=== PATIENT | male | born 1960 | race African-American/Black ===

== ENCOUNTER 2022-01-19 04:54 | Inpatient (IN) | payer OTHER ==
[~2022-01-19] VITALS: Ht 182.9 cm; Wt 102.1 kg
[2022-01-19] MEDS ORDERED: KETOROLAC 15MG/ML VIAL IM ONE (07:30)
[2022-01-19 11:22] LABS: HEMATOCRIT. 46.2 % (42.0-52.0); HEMOGLOBIN. 15.5 g/dL (14.0-18.0); MEAN CORPUSCULAR HEMOGLOBIN 28.4 pg (28.0-32.0); MEAN CORPUSCULAR VOLUME 84.5 fL (80.0-94.0); MEAN PLATELET VOLUME 7.9 fl (7.4-10.4); PLATELET 162 x1000/uL (130-400); RED BLOOD CELL COUNT 5.47 mill/uL (4.7-6.1); RED CELL DISTRIBUTION WIDTH 13.5 % (11.6-14.6)
[2022-01-19 11:26] LABS: CHLORIDE 104 mEq/L (98-107)
[2022-01-19 11:34] LABS: INR 1.1; PROTHROMBIN TIME 11.5 sec (9.6-11.0)
[2022-01-19 11:44] LABS: PLATELET ESTIMATE NORMAL
[2022-01-19] MEDS ORDERED: PROPOFOL 200MG/20ML VIAL IV ONE (13:36)
[2022-01-19] MEDS ORDERED: MIDAZOLAM HCL 2 MG/2 ML VIAL ONE (13:38)
[2022-01-19] MEDS ORDERED: LIDOCAINE HCL 1% 50ML VIAL (10MG/ML) ONE (13:38)
[2022-01-19] MEDS ORDERED: SKIN ADHESIVE 0.7 GM EA TOP ONE (13:41)
[2022-01-19] MEDS ORDERED: BACITRACIN 15GM TUBE TOP ONE (13:41)
[2022-01-19] MEDS ORDERED: POLYMYXIN B SULFATE 500000 UNITS/VIAL ONE (13:41)
[2022-01-19] MEDS ORDERED: VANCOMYCIN HCL 1 GM/VIAL ONE (13:41)
[2022-01-19] MEDS ORDERED: BUPIVACAINE HCL/PF 0.5% (5MG/ML) 10ML ONE (13:42)
[2022-01-19] MEDS ORDERED: LIDOCAINE HCL 1% 10 MG/ML 10ML VIAL ONE (13:42)
[2022-01-19] MEDS ORDERED: FENTANYL CITRATE/PF 50MCG/ML 2ML VIAL ONE (14:24)
[2022-01-19] MEDS ORDERED: ONDANSETRON HCL 4MG/2ML INJ ONE (14:25)
[2022-01-19] MEDS ORDERED: DEXAMETHASONE 4MG/ML 1ML VIAL ONE (14:25)
[2022-01-19] MEDS ORDERED: CEFAZOLIN SODIUM 1000MG/VIAL ONE (14:25)
[2022-01-19] MEDS ORDERED: ONDANSETRON HCL 4MG/2ML INJ IV PRN (15:00)
[2022-01-19] MEDS ORDERED: LORAZEPAM 0.5MG TABLET PO PRN (15:00)
[2022-01-19] MEDS ORDERED: IPRATROPIUM/ALBUTEROL 0.5-3(2.5)MG/3ML NEB HHN PRN (15:00)
[2022-01-19] MEDS ORDERED: CLONIDINE 0.1MG TABLET PO PRN (15:00)
[2022-01-19] MEDS ORDERED: ACETAMINOPHEN 325MG TABLET PO PRN ×2 (15:00)
[2022-01-19] MEDS ORDERED: DOCUSATE SODIUM 100MG CAPSULE PO PRN (15:00)
[2022-01-19] MEDS ORDERED: HYDROMORPHONE HCL/PF 2MG/ML CPJ IV PRN (16:00)
[2022-01-19 17:15] VITALS: BP 145/85
[2022-01-19] MEDS: CEFAZOLIN 2,000 MG in DEXT 5% WATER 100 ML IV SCH (19:10)
[2022-01-20] MEDS: CEFAZOLIN 2,000 MG in DEXT 5% WATER 100 ML IV SCH ×4 (00:23→23:53)
[2022-01-20 06:43] LABS: CHLORIDE 104 mEq/L (98-107)
[2022-01-20 06:51] LABS: BASOPHILS % 0.2 % (0.0-2.0); EOSINOPHILS % 0.9 % (0.0-5.0); HEMATOCRIT. 40.2 % (42.0-52.0); HEMOGLOBIN. 13.6 g/dL (14.0-18.0); LYMPHOCYTES % 8.2 % (20.0-50.0); MEAN CORPUSCULAR HEMOGLOBIN 28.6 pg (28.0-32.0); MEAN CORPUSCULAR VOLUME 84.3 fL (80.0-94.0); MONOCYTES % 9.1 % (2.0-8.0); NEUTROPHILS % 81.6 % (40.0-76.0); PLATELET 161 x1000/uL (130-400); RED BLOOD CELL COUNT 4.77 mill/uL (4.7-6.1); RED CELL DISTRIBUTION WIDTH 13.4 % (11.6-14.6)
[2022-01-20 08:00] VITALS: BP 149/77
[2022-01-20] MEDS ORDERED: NALOXONE HCL 0.4MG/ML VIAL IV PRN (08:15)
[2022-01-20] MEDS: ENOXAPARIN 30MG/0.3ML SYR SUBCUT SCH ×2 (08:29→21:33)
[2022-01-20] MEDS ORDERED: ENOXAPARIN 30MG/0.3ML SYR SUBCUT ONE (09:00)
[2022-01-20 12:00] VITALS: BP 135/75
[2022-01-20 16:00] VITALS: BP 152/90
[2022-01-20] MEDS: HYDROCODONE/ACETAMINOPHEN 5/325MG TABLET PO PRN (18:20)
[2022-01-20 20:00] VITALS: BP 148/81
[2022-01-21] VITALS: BP 134/76
[2022-01-21 04:00] VITALS: BP 130/74
[2022-01-21 08:00] VITALS: BP 155/81
[2022-01-21] MEDS: HYDROCODONE/ACETAMINOPHEN 5/325MG TABLET PO PRN (08:40)
[2022-01-21] MEDS: ENOXAPARIN 30MG/0.3ML SYR SUBCUT SCH ×2 (08:41→21:18)
[2022-01-21] MEDS: CEFAZOLIN 2,000 MG in DEXT 5% WATER 100 ML IV SCH ×2 (09:39→16:29)
[2022-01-21 16:00] VITALS: BP 149/84
[2022-01-21 19:58] VITALS: BP 159/91
[2022-01-22] VITALS: BP 148/88
[2022-01-22] MEDS: CEFAZOLIN 2,000 MG in DEXT 5% WATER 100 ML IV SCH ×3 (00:22→16:38)
[2022-01-22 04:00] VITALS: BP 138/78
[2022-01-22 08:00] VITALS: BP 141/86
[2022-01-22] MEDS: ENOXAPARIN 30MG/0.3ML SYR SUBCUT SCH ×2 (08:47→20:57)
[2022-01-22] MEDS ORDERED: LOSA1TAB40 PO (11:52)
[2022-01-22] MEDS ORDERED: AMLO10TA80 PO (11:54)
[2022-01-22] MEDS ORDERED: DOXA2TAB2 MT (11:55)
[2022-01-22] MEDS ORDERED: LOV30 SUBCUT (11:58)
[2022-01-22] MEDS ORDERED: ACET-3163 MT (11:58)
[2022-01-22] MEDS ORDERED: HYDR-4001 MT (11:58)
[2022-01-22 12:00] VITALS: BP 164/93
[2022-01-22 16:00] VITALS: BP 150/80
[2022-01-22 20:00] VITALS: BP 146/87
[2022-01-22] MEDS: DOXAZOSIN MESYLATE 2MG TABLET PO SCH (20:56)
[2022-01-23] VITALS: BP 128/70
[2022-01-23] MEDS: CEFAZOLIN 2,000 MG in DEXT 5% WATER 100 ML IV SCH ×3 (00:28→15:40)
[2022-01-23 04:00] VITALS: BP 130/77
[2022-01-23 08:00] VITALS: BP 138/81
[2022-01-23] MEDS: AMLODIPINE 10MG TABLET PO SCH (09:00)
[2022-01-23] MEDS: ENOXAPARIN 30MG/0.3ML SYR SUBCUT SCH ×2 (09:00→20:17)
[2022-01-23] MEDS: LOSARTAN POTASSIUM 100 MG TABLET PO SCH (09:00)
[2022-01-23] MEDS: HYDROCHLOROTHIAZIDE 12.5MG CAPSULE PO SCH (09:01)
[2022-01-23] MEDS: HYDROCODONE/ACETAMINOPHEN 5/325MG TABLET PO PRN (11:59)
[2022-01-23 12:00] VITALS: BP 133/85
[2022-01-23 16:00] VITALS: BP 137/91
[2022-01-23 20:00] VITALS: BP 144/85
[2022-01-23] MEDS: DOXAZOSIN MESYLATE 2MG TABLET PO SCH (20:17)
[2022-01-24] MEDS: CEFAZOLIN 2,000 MG in DEXT 5% WATER 100 ML IV SCH ×3 (00:13→16:27)
[2022-01-24 08:00] VITALS: BP 154/91
[2022-01-24] MEDS: HYDROCHLOROTHIAZIDE 12.5MG CAPSULE PO SCH (09:00)
[2022-01-24] MEDS: LOSARTAN POTASSIUM 100 MG TABLET PO SCH (09:27)
[2022-01-24] MEDS: AMLODIPINE 10MG TABLET PO SCH (09:27)
[2022-01-24] MEDS: ENOXAPARIN 30MG/0.3ML SYR SUBCUT SCH (09:28)
[2022-01-24 12:00] VITALS: BP 131/81
[2022-01-24 16:00] VITALS: BP 137/77
[2022-01-24 17:11] VITALS: BP 137/77
== END 2022-01-24 17:55 | disposition home health service (06) | DRG 482 ==
LOC: ER 04:54 → 4WST 09:26 → ENRESERV 12:19
PROVIDERS: ADMIT Internal Medicine; ATTEND Internal Medicine
PROC: 0QS604Z Reposition Right Upper Femur with Internal Fixation Device, Open Approach (ICD-10-PCS; principal; 2022-01-19)
DX: S72.001A Fracture of unspecified part of neck of right femur, initial encounter for closed fracture (principal); W01.0XXA Fall on same level from slipping, tripping and stumbling without subsequent striking against object, initial encounter; I10 Essential (primary) hypertension; D64.9 Anemia, unspecified; R73.9 Hyperglycemia, unspecified; R53.81 Other malaise; M89.9 Disorder of bone, unspecified; Z20.822 Contact with and (suspected) exposure to COVID-19; R26.9 Unspecified abnormalities of gait and mobility; Z82.49 Family history of ischemic heart disease and other diseases of the circulatory system; Y93.89 Activity, other specified; Y92.89 Other specified places as the place of occurrence of the external cause; Y99.8 Other external cause status
CPT/HCPCS: 36415; 71045; 73502; 73552; 73560; 73590; 73600; 76000; 80048; 80053; 85025; 86850; 86900; 87426; 93005; 97110; 97116; 97162; 97166; 97530; 97535; 99285; A6261; C1713; C9803; J0690; J1100; J1170; J1650; J1885; J2250; J2405; J2704; J3010; J3370; J3490; J7060

== ENCOUNTER 2022-01-30 10:13 | Inpatient (IN) | payer OTHER ==
[~2022-01-30] VITALS: Ht 180.3 cm; Wt 100.7 kg
[~2022-01-30 10:13] MED LIST: ACET-3163 MT; AMLO10TA80 PO; DOXA2TAB2 MT; HYDR-4001 MT; LOSA1TAB40 PO; LOV30 SUBCUT
[2022-01-30 11:08] LABS: BASOPHILS % 0.3 % (0.0-2.0); EOSINOPHILS % 1.6 % (0.0-5.0); HEMATOCRIT. 38.4 % (42.0-52.0); HEMOGLOBIN. 12.8 g/dL (14.0-18.0); LYMPHOCYTES % 24.6 % (20.0-50.0); MEAN CORPUSCULAR HEMOGLOBIN 27.9 pg (28.0-32.0); MEAN CORPUSCULAR VOLUME 83.6 fL (80.0-94.0); MEAN PLATELET VOLUME 7.2 fl (7.4-10.4); MONOCYTES % 6.9 % (2.0-8.0); NEUTROPHILS % 66.6 % (40.0-76.0); PLATELET 264 x1000/uL (130-400); RED BLOOD CELL COUNT 4.59 mill/uL (4.7-6.1)
[2022-01-30 11:10] LABS: CHLORIDE 107 mEq/L (98-107)
[2022-01-30] MEDS ORDERED: ENOXAPARIN 80MG/0.8ML SYR SUBCUT ONE (13:15)
[2022-01-30] MEDS ORDERED: DOCUSATE SODIUM 100MG CAPSULE PO PRN (14:30)
[2022-01-30] MEDS ORDERED: KETOROLAC 15MG/ML VIAL IV PRN (14:30)
[2022-01-30] MEDS ORDERED: CLONIDINE 0.1MG TABLET PO PRN (14:30)
[2022-01-30] MEDS ORDERED: ACETAMINOPHEN 325MG TABLET PO PRN (14:30)
[2022-01-30] MEDS ORDERED: NITROGLYCERIN 0.4MG TABLET SL SL PRN (14:30)
[2022-01-30] MEDS ORDERED: GUAIFENESIN 200MG/10ML SUGAR FREE UDC PO PRN (14:30)
[2022-01-30] MEDS ORDERED: POTASSIUM CHLORIDE 20MEQ TABLET SR PO NR (14:30)
[2022-01-30] MEDS ORDERED: ONDANSETRON HCL 4MG/2ML INJ IV PRN (14:30)
[2022-01-30] MEDS ORDERED: MAGNESIUM/ALUMINUM HYDROXIDE/SIMETHICONE 30ML UDC PO PRN (14:30)
[2022-01-30] MEDS ORDERED: NA PHOS,M-B/NA PHOS,DI-BA ENEMA 118ML PR PRN (14:30)
[2022-01-30] MEDS ORDERED: IPRATROPIUM/ALBUTEROL 0.5-3(2.5)MG/3ML NEB NEB PRN (14:30)
[2022-01-30] MEDS ORDERED: ENOXAPARIN 40MG/0.4ML SYR SUBCUT SCH (15:00)
[2022-01-30 15:38] LABS: ETHANOL BLOOD < 10 mg/dL; HDL CHOLESTEROL 42 mg/dL (40-59); LDL CHOLESTEROL 126 mg/dL (5-100); TOTAL IRON BINDING CAPACITY 237 ug/dL (250-450)
[2022-01-30] MEDS ORDERED: IOHEXOL-350 100 ML BOTTLE ONE (15:49)
[2022-01-30 16:26] LABS: VITAMIN B12 SERUM 645 pg/mL (211-911)
[2022-01-30 18:44] VITALS: BP 148/89
[2022-01-30] MEDS: ENOXAPARIN 100MG/ML SYR SUBCUT SCH (18:48)
[2022-01-30 20:00] VITALS: BP 133/88
[2022-01-30] MEDS ORDERED: ZOLPIDEM TARTRATE 5MG TABLET PO PRN (21:00)
[2022-01-30] MEDS: FAMOTIDINE 20MG TABLET PO SCH (23:14)
[2022-01-30] MEDS: METOPROLOL TARTRATE 25MG TABLET PO SCH (23:15)
[2022-01-31] VITALS: BP 130/92
[2022-01-31 03:46] LABS: CREATINE KINASE MB FRACTION 1.4 ng/mL (0.5-3.6)
[2022-01-31 04:00] VITALS: BP 128/87
[2022-01-31] MEDS ORDERED: ENOXAPARIN 30MG/0.3ML SYR SUBCUT SCH (06:00)
[2022-01-31] MEDS: ENOXAPARIN 100MG/ML SYR SUBCUT SCH ×2 (06:49→17:58)
[2022-01-31 08:00] VITALS: BP 124/87
[2022-01-31] MEDS: FAMOTIDINE 20MG TABLET PO SCH ×2 (08:46→21:29)
[2022-01-31] MEDS: METOPROLOL TARTRATE 25MG TABLET PO SCH ×2 (08:46→21:00)
[2022-01-31] MEDS ORDERED: ASPIRIN 325MG EC TABLET PO SCH (09:00)
[2022-01-31 12:00] VITALS: BP 131/94
[2022-01-31 13:26] LABS: BASOPHILS % 0.3 % (0.0-2.0); EOSINOPHILS % 2.4 % (0.0-5.0); HEMATOCRIT. 40.3 % (42.0-52.0); HEMOGLOBIN. 13.6 g/dL (14.0-18.0); LYMPHOCYTES % 23.9 % (20.0-50.0); MEAN CORPUSCULAR HEMOGLOBIN 28.2 pg (28.0-32.0); MEAN CORPUSCULAR VOLUME 83.7 fL (80.0-94.0); MEAN PLATELET VOLUME 6.9 fl (7.4-10.4); MONOCYTES % 8.5 % (2.0-8.0); NEUTROPHILS % 64.9 % (40.0-76.0); PLATELET 218 x1000/uL (130-400); RED BLOOD CELL COUNT 4.82 mill/uL (4.7-6.1)
[2022-01-31 13:34] LABS: INR 1.1; PROTHROMBIN TIME 11.8 sec (9.6-11.0)
[2022-01-31 14:14] LABS: CREATINE KINASE 106 IU/L (39-308); CREATINE KINASE MB FRACTION < 1.0 ng/mL (0.5-3.6); PHOSPHORUS 3.2 mg/dL (2.5-4.9)
[2022-01-31 16:00] VITALS: BP 124/84
[2022-01-31 16:55] LABS: *AMPHETAMINES SCREEN URINE NEGATIVE (NEGATIVE); *BARBITURATES SCREEN URINE NEGATIVE (NEGATIVE); *BENZODIAZEPINES SCREEN URINE NEGATIVE (NEGATIVE); *COCAINE SCREEN URINE NEGATIVE (NEGATIVE); CANNABINOID URINE SCREEN NEGATIVE (NEGATIVE); METHADONE URINE SCREEN NEGATIVE (NEGATIVE); OPIATES URINE SCREEN NEGATIVE (NEGATIVE); PHENCYCLIDINE URINE SCREEN NEGATIVE (NEGATIVE)
[2022-01-31 20:00] VITALS: BP 136/85
[2022-02-01] VITALS (7 sets, daily range): BP systolic 131–162; BP diastolic 85–104
[2022-02-01] MEDS: ENOXAPARIN 100MG/ML SYR SUBCUT SCH (05:42)
[2022-02-01] MEDS: METOPROLOL TARTRATE 25MG TABLET PO SCH ×2 (09:00→21:25)
[2022-02-01] MEDS: FAMOTIDINE 20MG TABLET PO SCH ×2 (09:00→21:25)
[2022-02-01] MEDS ORDERED: IODIXANOL 320MG/ML 100 ML BOTTLE IV ONE (09:13)
[2022-02-01] MEDS ORDERED: LIDOCAINE HCL/PF 1% 10 MG/ML 5ML VIAL ONE (09:13)
[2022-02-01] MEDS ORDERED: HEPARIN 1000 UNITS/ML 10ML ONE ×2 (09:13→10:57)
[2022-02-01] MEDS ORDERED: FENTANYL CITRATE/PF 50MCG/ML 2ML VIAL ONE (09:57)
[2022-02-01] MEDS ORDERED: MIDAZOLAM HCL 2 MG/2 ML VIAL ONE ×2 (09:57→10:41)
[2022-02-01] MEDS ORDERED: DIPHENHYDRAMINE 50MG/ML VIAL ONE (10:09)
[2022-02-01] MEDS ORDERED: ATROPINE SULFATE 1MG/10ML SYR IV PRN (12:45)
[2022-02-01] MEDS ORDERED: SODIUM CHLORIDE 0.45% 250 ML IV SCH (13:00)
[2022-02-01] MEDS: KETOROLAC 15MG/ML VIAL IV PRN (13:44)
[2022-02-01] MEDS ORDERED: APIXABAN 5 MG TABLET PO SCH ×2 (17:00)
[2022-02-01] MEDS ORDERED: NALOXONE HCL 0.4MG/ML VIAL IV PRN (17:30)
[2022-02-01] MEDS: MORPHINE SULFATE 2 MG/ML CPJ (NOT FOR IM USE) IV PRN (18:15)
[2022-02-01 21:54] LABS: BASOPHILS % 0.2 % (0.0-2.0); EOSINOPHILS % 1.7 % (0.0-5.0); HEMATOCRIT. 35.9 % (42.0-52.0); HEMOGLOBIN. 12.3 g/dL (14.0-18.0); LYMPHOCYTES % 14.6 % (20.0-50.0); MEAN CORPUSCULAR HEMOGLOBIN 28.3 pg (28.0-32.0); MEAN CORPUSCULAR VOLUME 82.5 fL (80.0-94.0); MEAN PLATELET VOLUME 7.4 fl (7.4-10.4); MONOCYTES % 7.6 % (2.0-8.0); NEUTROPHILS % 75.9 % (40.0-76.0); PLATELET 242 x1000/uL (130-400); RED BLOOD CELL COUNT 4.35 mill/uL (4.7-6.1); RED CELL DISTRIBUTION WIDTH 12.6 % (11.6-14.6)
[2022-02-01] MEDS ORDERED: IOHEXOL-300 100 ML BOTTLE ONE (23:25)
[2022-02-02] VITALS (10 sets, daily range): BP systolic 135–172; BP diastolic 81–109
[2022-02-02] MEDS: MORPHINE SULFATE 2 MG/ML CPJ (NOT FOR IM USE) IV PRN (00:17)
[2022-02-02 06:48] LABS: BASOPHILS % 0.2 % (0.0-2.0); EOSINOPHILS % 2.6 % (0.0-5.0); HEMATOCRIT. 34.2 % (42.0-52.0); HEMOGLOBIN. 11.8 g/dL (14.0-18.0); LYMPHOCYTES % 16.5 % (20.0-50.0); MEAN CORPUSCULAR HEMOGLOBIN 28.4 pg (28.0-32.0); MEAN PLATELET VOLUME 7.5 fl (7.4-10.4); MONOCYTES % 9.2 % (2.0-8.0); NEUTROPHILS % 71.5 % (40.0-76.0); PLATELET 235 x1000/uL (130-400); RED BLOOD CELL COUNT 4.17 mill/uL (4.7-6.1); RED CELL DISTRIBUTION WIDTH 12.3 % (11.6-14.6)
[2022-02-02 06:54] LABS: CHLORIDE 105 mEq/L (98-107)
[2022-02-02] MEDS: FAMOTIDINE 20MG TABLET PO SCH ×2 (08:33→20:01)
[2022-02-02] MEDS: METOPROLOL TARTRATE 25MG TABLET PO SCH ×2 (08:35→20:01)
[2022-02-02] MEDS: KETOROLAC 15MG/ML VIAL IV PRN (08:36)
[2022-02-03] VITALS (11 sets, daily range): BP systolic 130–154; BP diastolic 58–95
[2022-02-03] MEDS: METOPROLOL TARTRATE 25MG TABLET PO SCH ×2 (08:49→20:15)
[2022-02-03] MEDS: FAMOTIDINE 20MG TABLET PO SCH ×2 (08:49→20:14)
[2022-02-03] MEDS: APIXABAN 5 MG TABLET PO SCH ×2 (11:43→17:30)
[2022-02-04] VITALS (14 sets, daily range): BP systolic 120–143; BP diastolic 75–100
[2022-02-04] MEDS: FAMOTIDINE 20MG TABLET PO SCH ×2 (08:11→20:34)
[2022-02-04] MEDS: APIXABAN 5 MG TABLET PO SCH ×2 (08:11→17:05)
[2022-02-04] MEDS: METOPROLOL TARTRATE 25MG TABLET PO SCH (08:11)
[2022-02-05] VITALS (10 sets, daily range): BP systolic 129–144; BP diastolic 78–92
[2022-02-05] MEDS: ACETAMINOPHEN 325MG TABLET PO PRN ×3 (01:19→17:45)
[2022-02-05] MEDS: APIXABAN 5 MG TABLET PO SCH ×2 (08:22→17:44)
[2022-02-05] MEDS: FAMOTIDINE 20MG TABLET PO SCH ×2 (08:22→21:42)
[2022-02-06] VITALS (8 sets, daily range): BP systolic 141–146; BP diastolic 62–93
[2022-02-06] MEDS ORDERED: LIDOCAINE 5% PATCH TOP SCH (09:00)
[2022-02-06] MEDS: FAMOTIDINE 20MG TABLET PO SCH (09:38)
[2022-02-06] MEDS: APIXABAN 5 MG TABLET PO SCH (09:39)
[2022-02-06] MEDS ORDERED: APIX5TAB PO (11:25)
[2022-02-06] MEDS ORDERED: FAMO20TA8 PO (11:25)
[2022-02-10] MEDS ORDERED: APIXABAN 5 MG TABLET PO SCH ×2 (09:00)
== END 2022-02-06 13:35 | disposition home health service (06) | DRG 163 ==
LOC: ER 10:13 → EDBEDREQ 13:19 → EDBEDREQTM 13:19 → ENRESERV 16:07 → 7EST 17:43 → 3WST 02-01 12:35
PROVIDERS: ADMIT Internal Medicine; ATTEND Internal Medicine
PROC: 4A023N6 Measurement of Cardiac Sampling and Pressure, Right Heart, Percutaneous Approach (ICD-10-PCS; principal; 2022-02-01)
PROC: 02CP3ZZ Extirpation of Matter from Pulmonary Trunk, Percutaneous Approach (ICD-10-PCS; 2022-02-01)
PROC: 02CR3ZZ Extirpation of Matter from Left Pulmonary Artery, Percutaneous Approach (ICD-10-PCS; 2022-02-01)
PROC: B519YZA Fluoroscopy of Inferior Vena Cava using Other Contrast, Guidance (ICD-10-PCS; 2022-02-01)
PROC: B51BYZA Fluoroscopy of Right Lower Extremity Veins using Other Contrast, Guidance (ICD-10-PCS; 2022-02-01)
PROC: B31TYZZ Fluoroscopy of Left Pulmonary Artery using Other Contrast (ICD-10-PCS; 2022-02-01)
PROC: B31SYZZ Fluoroscopy of Right Pulmonary Artery using Other Contrast (ICD-10-PCS; 2022-02-01)
DX: I26.99 Other pulmonary embolism without acute cor pulmonale (principal); I21.4 Non-ST elevation (NSTEMI) myocardial infarction; E44.0 Moderate protein-calorie malnutrition; E87.6 Hypokalemia; R73.03 Prediabetes; Z20.822 Contact with and (suspected) exposure to COVID-19; R55 Syncope and collapse; I11.9 Hypertensive heart disease without heart failure; D64.9 Anemia, unspecified; R09.02 Hypoxemia; Z68.31 Body mass index [BMI] 31.0-31.9, adult; Z79.899 Other long term (current) drug therapy
CPT/HCPCS: 36415; 37184; 71045; 71275; 73702; 75820; 75825; 80048; 80053; 80061; 80305; 80320; 82550; 82553; 82565; 82607; 82746; 83036; 83540; 83550; 83735; 83880; 84100; 84439; 84443; 84484; 84520; 85025; 85379; 87426; 93005; 93306; 93451; 93970; 97162; 99291; C1760; C1769; C1887; C1893; J1200; J1644; J1650; J1885; J2250; J2270; J2405; J3010; J3490; Q9967; G0480

== ENCOUNTER 2025-04-08 10:01 | Inpatient (IN) | payer OTHER ==
[~2025-04-08] VITALS: Ht 182.9 cm; Wt 108.1 kg
[~2025-04-08 10:01] MED LIST changes: +APIX5TAB PO; -DOXA2TAB2 MT; +FAMO20TA8 PO; -LOV30 SUBCUT
[2025-04-08 10:37] LABS: HEMATOCRIT. 46.5 % (42.0-52.0); HEMOGLOBIN. 15.8 g/dL (14.0-18.0); MEAN PLATELET VOLUME 8.2 fl (7.4-10.4); PLATELET 138 x1000/uL (130-400); RED BLOOD CELL COUNT 5.57 mill/uL (4.7-6.1); RED CELL DISTRIBUTION WIDTH 13.1 % (11.6-14.6)
[2025-04-08 10:53] LABS: CREATININE 1.2 mg/dL (0.6-1.3); PROTEIN TOTAL 7.4 g/dL (6.0-8.3); TROPONIN I HIGH SENSITIVITY 23 ng/L (3.0-53); UREA NITROGEN BLOOD 16 mg/dL (9-23)
[2025-04-08 10:55] LABS: ASPARTATE AMINOTRANSFERASE 96 IU/L (<34); BILIRUBIN DIRECT 0.5 mg/dL (<=3.0); BILIRUBIN TOTAL 1.7 mg/dL (0.1-1.0)
[2025-04-08 11:04] LABS: BAND% 6.0 % (1.0-6.0); LYMPHOCYTES % MANUAL 22.0 % (20.0-50.0); MONOCYTES % MANUAL 15.0 % (2.0-8.0); NEUTROPHILS % MANUAL 57.0 % (45.0-75.0); PLATELET ESTIMATE NORMAL
[2025-04-08] MEDS: CEFTRIAXONE 1GM/50ML 50 ML IV NR (11:14)
[2025-04-08] MEDS: IPRATROPIUM/ALBUTEROL 0.5-3(2.5)MG/3ML NEB HHN NR (11:33)
[2025-04-08 11:38] VITALS: PULSE 100; RESP 59; O2SAT 100
[2025-04-08 11:52] LABS: BG BASE EXCESS -2.2 mmol/L (-2.0-3.0); BG CARBOXYHEMOGLOBIN 1.0 % (0.5-1.5); BG DEOXYHEMOGLOBIN 2.4 % (0.0-5.0); BG FLOW(L/min) 10.00 L/min; BG FRACTION INSPIRED OXYGEN 60; BG HCO3 ACT 23.8 mmol/L (21.0-28.0); BG METHEMOGLOBIN 0.3 % (0.5-1.5); BG OXYGEN SATURATION 97.6 % (94.0-98.0); BG OXYHEMOGLOBIN 96.3 % (94.0-98.0); BG PCO2 45.2 mmHg (35.0-48.0); BG PH 7.340 (7.350-7.450); BG PO2 97.2 mmHg (83.0-108.0); BG SAMPLE SITE RIGHT BRACHIAL; BG TOTAL HEMOGLOBIN 16.4 g/dL (13.5-17.5); BG VENT MODE HHN TREATMENT
[2025-04-08] MEDS: AZITHROMYCIN 500MG/250ML 250 ML IV NR (11:55)
[2025-04-08] MEDS: POTASSIUM CHLORIDE 20MEQ/PACKET PO NR (12:00)
[2025-04-08] MEDS ORDERED: ACETAMINOPHEN 325MG TABLET PO PRN ×2 (13:30)
[2025-04-08] MEDS ORDERED: CLONIDINE 0.1MG TABLET PO PRN (13:30)
[2025-04-08] MEDS ORDERED: GUAIFENESIN 200MG/10ML SUGAR FREE UDC PO PRN (13:30)
[2025-04-08] MEDS ORDERED: ONDANSETRON HCL 4MG/2ML INJ IV PRN (13:30)
[2025-04-08] MEDS ORDERED: IPRATROPIUM/ALBUTEROL 0.5-3(2.5)MG/3ML NEB HHN PRN (13:30)
[2025-04-08] MEDS ORDERED: MORPHINE SULFATE 2 MG/ML INJ (NOT FOR IM USE) IV PRN (13:30)
[2025-04-08 14:00] VITALS: BP 137/88; PULSE 61; RESP 21; TEMP 37.252
[2025-04-08] MEDS ORDERED: IOHEXOL-350 100 ML BOTTLE ONE (14:09)
[2025-04-08 16:00] VITALS: BP 135/85; PULSE 54; RESP 24; TEMP 37.7; O2SAT 97
[2025-04-08] MEDS: BENZONATATE 100MG CAPSULE PO SCH (16:47)
[2025-04-08] MEDS: ACETAMINOPHEN WITH CODEINE 300/30MG TABLET PO SCH (16:48)
[2025-04-08 17:13] LABS: CLARITY URINE CLEAR (CLEAR); COLOR URINE YELLOW (YELLOW); GLUCOSE URINE NEGATIVE (NEGATIVE); KETONES URINE NEGATIVE (NEGATIVE); LEUKOCYTE ESTERASE URINE NEGATIVE (NEGATIVE); NITRITE URINE NEGATIVE (NEGATIVE); OCCULT BLOOD URINE 1+ (NEGATIVE); PH URINE 6.5 (4.5-8.0); PROTEIN URINE 3+ (NEGATIVE); SPECIFIC GRAVITY URINE 1.041 (1.005-1.030); UROBILINOGEN URINE 1.0 E.U./dL (0.2-1.0)
[2025-04-08 17:22] LABS: *AMPHETAMINES SCREEN URINE NEGATIVE (NEGATIVE); *BENZODIAZEPINES SCREEN URINE NEGATIVE (NEGATIVE)
[2025-04-08 17:23] LABS: *BARBITURATES SCREEN URINE NEGATIVE (NEGATIVE); *COCAINE SCREEN URINE NEGATIVE (NEGATIVE); CANNABINOID URINE SCREEN NEGATIVE (NEGATIVE); ECSTASY MDMA SCREEN URINE NEGATIVE (NEGATIVE); METHADONE URINE SCREEN NEGATIVE (NEGATIVE); OPIATES URINE SCREEN NEGATIVE (NEGATIVE); PHENCYCLIDINE URINE SCREEN NEGATIVE (NEGATIVE)
[2025-04-08 17:37] LABS: INFLUENZA TYPE A Presumptive Negative (Pres. Neg.)
[2025-04-08 17:38] LABS: INFLUENZA TYPE B Presumptive Negative (Pres. Neg.)
[2025-04-08 17:39] LABS: RESPIRATORY SYNCYTIAL VIRUS Not Detected (Not Detectd)
[2025-04-08 17:44] LABS: WBC URINE 0-2 /hpf (0-2)
[2025-04-08 17:45] LABS: BACTERIA URINE NONE SEEN; RBC URINE NONE SEEN /hpf (0-2); SQUAMOUS EPITHELIAL CELL URINE RARE /lpf (RARE/1+)
[2025-04-08 19:46] LABS: TROPONIN I HIGH SENSITIVITY 20 ng/L (3.0-53)
[2025-04-08 19:49] LABS: CREATINE KINASE MB FRACTION < 0.5 ng/mL (0.5-3.6)
[2025-04-08 19:51] LABS: INR 1.0
[2025-04-08 20:00] VITALS: BP 131/86; PULSE 53; RESP 26; TEMP 37.4; O2SAT 95
[2025-04-08] MEDS ORDERED: DOXA2TAB2 MT (20:22)
[2025-04-08 20:25] LABS: HEPATITIS C AB NON REACTIVE (Neg) (Negative)
[2025-04-08] MEDS: IPRATROPIUM/ALBUTEROL 0.5-3(2.5)MG/3ML NEB HHN SCH (20:41)
[2025-04-08 20:45] VITALS: PULSE 55; RESP 23; O2SAT 95
[2025-04-08] MEDS: GUAIFENESIN 600MG ER TABLET PO SCH (22:13)
[2025-04-08] MEDS: FAMOTIDINE 20MG/2ML VIAL IV SCH (22:13)
[2025-04-09] VITALS (10 sets, daily range): BP systolic 110–128; BP diastolic 67–93; PULSE 50–70; RESP 16–30; TEMP 36.3–37.7; O2SAT 95–98
[2025-04-09 01:25] LABS: CREATINE KINASE MB FRACTION < 0.5 ng/mL (0.5-3.6)
[2025-04-09 01:27] LABS: TROPONIN I HIGH SENSITIVITY 17 ng/L (3.0-53)
[2025-04-09 07:20] LABS: T4 FREE 1.40 ng/dL (0.89-1.76)
[2025-04-09 07:21] LABS: CREATININE 1.1 mg/dL (0.6-1.3)
[2025-04-09 07:22] LABS: LDL CHOLESTEROL 61 mg/dL (5-100); TRIGLYCERIDE 122 mg/dL (0-150); UREA NITROGEN BLOOD 15 mg/dL (9-23)
[2025-04-09 07:33] LABS: BASOPHILS % 0.3 % (0.0-2.0); EOSINOPHILS % 0.1 % (0.0-5.0); HEMATOCRIT. 44.5 % (42.0-52.0); HEMOGLOBIN. 15.0 g/dL (14.0-18.0); LYMPHOCYTES % 23.1 % (20.0-50.0); MEAN PLATELET VOLUME 8.5 fl (7.4-10.4); MONOCYTES % 14.6 % (2.0-8.0); NEUTROPHILS % 61.9 % (40.0-76.0); PLATELET 131 x1000/uL (130-400); RED BLOOD CELL COUNT 5.31 mill/uL (4.7-6.1); RED CELL DISTRIBUTION WIDTH 13.2 % (11.6-14.6)
[2025-04-09] MEDS ORDERED: CEFTRIAXONE 1,000 MG in DEXT 5% WATER 100 ML IV SCH (13:15)
[2025-04-09] MEDS ORDERED: GUAIFENESIN-DM 200MG-20MG/10ML UDC PO PRN (14:15)
[2025-04-09] MEDS: AZITHROMYCIN 500 MG TABLET PO SCH (14:50)
[2025-04-09] MEDS: DEXT 5%/0.45% NACL 1000ML 1,000 ML IV SCH (14:51)
[2025-04-09] MEDS: CEFTRIAXONE 1GM/50ML 50ML IV SCH (15:39)
[2025-04-09] MEDS ORDERED: NALOXONE HCL 0.4MG/ML VIAL IV PRN (16:15)
[2025-04-10] VITALS (9 sets, daily range): BP systolic 111–159; BP diastolic 62–94; PULSE 47–60; RESP 14–32; TEMP 36.7–37.2; O2SAT 96–100
[2025-04-10] MEDS: CEFTRIAXONE 1GM/50ML 50ML IV SCH (14:45)
[2025-04-10] MEDS: ENOXAPARIN 30MG/0.3ML SYR SUBCUT SCH (14:46)
[2025-04-10] MEDS: PREDNISONE 20MG TABLET PO SCH (16:28)
[2025-04-10] MEDS: AMLODIPINE 5MG TABLET PO SCH (21:24)
[2025-04-11] VITALS (7 sets, daily range): BP systolic 110–141; BP diastolic 60–93; PULSE 56–69; RESP 16–28; TEMP 36.7–37.1; O2SAT 95–98
[2025-04-11] MEDS ORDERED: AMOX1TAB16 MT (10:21)
[2025-04-11] MEDS ORDERED: BENZ100C86 MT (14:08)
== END 2025-04-11 15:00 | disposition home or self-care (01) | DRG 202 ==
LOC: ER 10:01 → 3WST 12:13 → EDBEDREQTM 12:20 → EDBEDREQ 12:20 → ENRESERV 13:20
PROVIDERS: ADMIT Hospitalist; ATTEND Hospitalist
DX: J20.9 Acute bronchitis, unspecified (principal); J18.9 Pneumonia, unspecified organism; J96.01 Acute respiratory failure with hypoxia; J90 Pleural effusion, not elsewhere classified; I10 Essential (primary) hypertension; E87.6 Hypokalemia; Z86.711 Personal history of pulmonary embolism; Z79.899 Other long term (current) drug therapy
CPT/HCPCS: 36415; 36600; 71045; 71275; 80048; 80061; 80076; 80305; 81003; 82375; 82550; 82553; 82805; 83605; 83735; 83880; 84145; 84439; 84443; 84481; 84484; 85025; 86705; 87070; 87340; 87420; 87804; 93005; 93306; 93970; 94070; 94640; 94660; 94664; 99285; A4606; J0456; J0696; J1308; J1650; J7512; Q9967